=== PATIENT | female | born 1990 | race Caucasian/White ===

== ENCOUNTER 2016-09-24 17:32 | Emergency (ER) | payer SELFPAY ==
[2016-09-24 17:49] VITALS: BP 124/84
--- NOTE | 2016-09-24 18:15 | ER Document Report ---
ED Medical Screen (RME) - General Stated Complaint: POSSIBLE TOOTH ABSCESS Mode of Arrival: Ambulatory Information source: Patient Notes: Patient complains of dental pain for the past 3 days. I have greeted and performed a rapid initial assessment of this patient. A comprehensive ED assessment and evaluation of the patient, analysis of test results and completion of the medical decision making process will be conducted by additional ED providers. - Related Data Allergies/Adverse Reactions: No Known Allergies Allergy (Unverified 09/24/16 18:14) Physical Exam - Vital signs Vitals: Temp Pulse Resp BP Pulse Ox 98.6 F 112 H 16 124/84 98 09/24/16 17:48 09/24/16 17:48 09/24/16 17:48 09/24/16 17:48 09/24/16 17:48 - General General appearance: Appears well, Alert In distress: None Course - Vital Signs Vital signs: Temp Pulse Resp BP Pulse Ox 98.6 F 112 H 16 124/84 98 09/24/16 17:48 09/24/16 17:48 09/24/16 17:48 09/24/16 17:48 09/24/16 17:48
[2016-09-24] MEDS ORDERED: BUPIVACAINE HCL 0.25 % INJ/PF (2.5 MG/1 ML) 30 ML VIAL INJ ONE (20:04)
[2016-09-24] MEDS ORDERED: LIDOCAINE 1% INJ (10 MG/ML) 10 ML MDV INJ ONE (20:04)
[2016-09-24] MEDS ORDERED: PENICILLIN V POTASSIUM 500 MG TABLET PO ONE (20:04)
--- NOTE | 2016-09-24 20:05 | ER Document Report ---
ED Oral Problem - General Time seen by provider: 20:00 Mode of Arrival: Ambulatory TRAVEL OUTSIDE OF THE [place] IN LAST 30 DAYS: No - HPI Onset: Other - see HPI note Context: Fractured tooth Associated symptoms: Decreased appetite, Facial pain, Jaw pain <AILYN HALE - Last Filed: 09/24/16 20:14> <SHASHACEASAR MADRID KANDY - Last Filed: 09/24/16 21:30> - General Chief Complaint: Toothache Stated Complaint: POSSIBLE TOOTH ABSCESS Notes: Patient is a 26 year old female presenting to the emergency department with complaints of tooth and jaw pain. Patient states that her lower right tooth broke 2 months ago and has been hurting over the past 3 days. Patient states that she has not been able to eat much do to the pain. Patient states that she has not seen a dentist yet. Patient is from [place]. Patient states she has platelets in her mouth and she would need to see an oral surgeon. Patient states she has some pain in her jaw and it is tender. Patient has no known allergies and requests antibiotics for her toothache. 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 (AILYN HALE) - Related Data Allergies/Adverse Reactions: No Known Allergies Allergy (Unverified 09/24/16 18:14) Past Medical History - General Information source: Patient - Social History Smoking Status: Current Every Day Smoker Chew tobacco use (# tins/day): No Frequency of alcohol use: None Drug Abuse: None Family History: None Patient has suicidal ideation: No Patient has homicidal ideation: No - Medical History Medical History: Negative Surgical Hx: Negative <AILYN HALE - Last Filed: 09/24/16 20:14> Review of Systems - Review of Systems Constitutional: No symptoms reported EENT: See HPI, Dental problem Cardiovascular: No symptoms reported Respiratory: No symptoms reported Gastrointestinal: No symptoms reported Genitourinary: No symptoms reported Female Genitourinary: No symptoms reported Musculoskeletal: No symptoms reported Skin: No symptoms reported Hematologic/Lymphatic: No symptoms reported Neurological/Psychological: No symptoms reported -: Yes All other systems reviewed and negative <AILYN HALE - Last Filed: 09/24/16 20:14> Physical Exam - Vital signs Interpretation: Normal - General General appearance: Appears well, Alert In distress: Mild - HEENT Head: Normocephalic, Atraumatic Eyes: Normal Pupils: PERRL Mouth/Lips: Dental fracture - tooth 31 Mucous membranes: Moist Pharynx: Normal - Respiratory Respiratory status: No respiratory distress - Cardiovascular Rhythm: Regular - Abdominal Inspection: Normal - Back Back: Normal, Nontender - Extremities General upper extremity: Normal inspection, Normal ROM, Normal strength General lower extremity: Normal inspection, Normal ROM, Normal strength - Neurological Neuro grossly intact: Yes Cognition: Normal Orientation: AAOx4 [place] Coma Scale Eye Opening: Spontaneous [place] Coma Scale Verbal: Oriented [place] Coma Scale Motor: Obeys Commands [place] Coma Scale Total: 15 Speech: Normal - Psychological Associated symptoms: Normal affect, Normal mood - Skin Skin Temperature: Warm Skin Moisture: Dry <AILYN HALE - Last Filed: 09/24/16 20:14> Course <AILYN HALE - Last Filed: 09/24/16 20:14> <CEASAR ANDRES - Last Filed: 09/24/16 21:30> - Re-evaluation Re-evalutation: 09/24/16 21:30 Patient is a 26-year-old female who comes in complaining of dental pain. Patient has a history of opiate abuse and does not want any opiate pain medication. States that she would just like penicillin. Patient is supposed to be following up with a dentist and oral surgeon. Patient was given a dental block with good relief of her symptoms. Stable for discharge home. Return immediately if any worsening or concerning symptoms. (CEASAR ANDRES) - Vital Signs Vital signs: Temp Pulse Resp BP Pulse Ox 98.6 F 112 H 16 124/84 98 09/24/16 17:48 09/24/16 17:48 09/24/16 17:48 09/24/16 17:48 09/24/16 17:48 (AILYN HALE) (CEASAR ANDRES) Procedures - Additional Procedures dental block Additional Procedures: Other - Dental block inferior alveolar nerve on the right. Patient tolerated well. Bupivacaine and lidocaine used. 3 mL total <CEASAR ANDRES - Last Filed: 09/24/16 21:30> Discharge <AILYN HALE - Last Filed: 09/24/16 20:14> <CEASAR ANDRES - Last Filed: 09/24/16 21:30> - Discharge Clinical Impression: Cracked tooth, Toothache Condition: Stable Disposition: HOME, SELF-CARE Instructions: Toothache ([facility]), Dentist, Dental Infection or Abscess ([facility]) Prescriptions: Penicillin V Potassium [Penicillin Vk 500 mg Tablet] 500 mg PO TID #30 tablet Scribe Attestation: 09/24/16 21:30 I personally performed the services described in the documentation, reviewed and edited the documentation which was dictated to the scribe in my presence, and it accurately records my words and actions. (CESAAR ANDRES) Scribe Documentation - Scribe Written by Scrpasha:: Ailyn Hale 09/24/16 20:19 acting as scribe for :: Italo <AILYN HALE - Last Filed: 09/24/16 20:14>
== END 2016-09-24 20:38 | disposition home or self-care (01) ==
LOC: ER 17:32
PROC: 3E0T3BZ Introduction of Anesthetic Agent into Peripheral Nerves and Plexi, Percutaneous Approach (ICD-10-PCS; principal; 2016-09-24)
DX: K03.81 Cracked tooth (principal); K08.89 Other specified disorders of teeth and supporting structures; R68.84 Jaw pain; F17.200 Nicotine dependence, unspecified, uncomplicated
CPT/HCPCS: 99282

== ENCOUNTER 2017-11-22 15:38 | Emergency (ER) | payer SELFPAY ==
[2017-11-22 15:44] VITALS: BP 118/71
[2017-11-22] MEDS ORDERED: LIDOCAINE 2% VISCOUS SOLN 20 ML UDCUP PO ONE (15:52)
--- NOTE | 2017-11-22 15:57 | ER Document Report ---
HPI - HPI Pain Level: 5 Notes: Patient is a 27-year-old female with a history of previous general surgery who presents to the ED complaining of right lower jaw pain #29. Patient states that her tooth rotted out on its own and fell out and she believes she has had an infection in that area. Patient has not noticed any obvious abscess, but thinks it may have been some discharge. Her symptoms have been ongoing for the last 2 days. She is eating and drinking without any difficulties otherwise. She is urinating normally and having normal bowel movements. Patient has not schedule an appoint with the dentist. She does admit to smoking but denies IV drug use. Denies any drug allergies. No other concerns or complaints at this time. Denies any headache, documented fever, head injury, neck pain, changes in vision/speech/mentation/hearing, URI, sore throat, chest pain, palpitations, syncope, cough, shortness of breath, wheeze, dyspnea, abdominal pain, nausea/ vomiting/diarrhea, urinary retention, dysuria, hematuria, or rash. - ROS Systems Reviewed and Negative: Yes All other systems reviewed and negative Past Medical History - Social History Smoking Status: Current Every Day Smoker Family History: None Renal/ Medical History: Denies: Hx Peritoneal Dialysis Vertical Provider Document - CONSTITUTIONAL Agree With Documented VS: Yes Notes: PHYSICAL EXAMINATION: GENERAL: Well-appearing, well-nourished and in no acute distress. HEAD: Atraumatic, normocephalic. EYES: Pupils equal round and reactive to light, extraocular movements intact, sclera anicteric, conjunctiva are normal. ENT: EAC clear b/l. TM's intact b/l without erythema, fluid, or perforation. Nares patent and without discharge. oropharynx clear without exudates. No tonsilar hypertrophy or erythema. Moist mucous membranes. No sinus tenderness. Uvula midline. No palatine shift. No tongue protrusion. No respiratory compromise. Mouth: Poor dentition. Absent tooth with mild gingivitis. No obvious abscess or discharge noted. No facial swelling. + tenderness to area of #29. NECK: Normal range of motion, supple without lymphadenopathy. No rigidity/ meningismus. LUNGS: Breath sounds clear to auscultation bilaterally and equal. No wheezes rales or rhonchi. HEART: Regular rate and rhythm without murmurs, rubs, gallops. NEUROLOGICAL: Cranial nerves grossly intact. Normal speech, normal gait. Normal sensory, motor exams PSYCH: Normal mood, normal affect. SKIN: Warm, Dry, normal turgor, no rashes or lesions noted. - INFECTION CONTROL TRAVEL OUTSIDE OF THE [place] IN LAST 30 DAYS: No Course - Re-evaluation Re-evalutation: 11/22/17 15:54 Patient is an afebrile, well-hydrated, 27-year-old female who presents to the ED with dental pain to right lower jaw, suspect nerve root etiology versus infection. Vitals are acceptable. PE is otherwise unremarkable. No labs or imaging warranted at this time based on H&P. No incision and drainage is warranted at this time. Viscous lidocaine given today. I will send her home with a prescription for penicillin. Low suspicion for any meningitis, sepsis, peritonsillar/pharyngeal abscess, respiratory compromise, Gume's, temporal arteritis, or other emergent systemic condition at this time. Patient is aware this condition can change from initial presentation and she needs to monitor symptoms closely. Conservative measures otherwise for symptoms. Call to schedule an appointment with a dentist for further evaluation and management. Recheck with your PCM this week as well. Return to the ED with any worsening/ concerning symptoms otherwise as reviewed in discharge. Patient is in agreement. - Vital Signs Vital signs: Temp Pulse Resp BP Pulse Ox 97.5 F 81 16 118/71 97 11/22/17 15:43 11/22/17 15:43 11/22/17 15:43 11/22/17 15:43 11/22/17 15:43 Discharge - Discharge Clinical Impression: Pain, dental Condition: Stable Disposition: HOME, SELF-CARE Instructions: Dental Infection or Abscess ([facility]), Penicillin V K ([facility]) Additional Instructions: Dracut and floss twice daily Maintain fluid intake Take antibiotics as directed Mouthwash, salt water gargles, peroxide rinse as needed Tylenol/ibuprofen as needed Recheck with PCM this week Call today/tomorrow and schedule an appointment with your dentist for further evaluation Return to the ED with any worsening symptoms and/or development of fever, headache, facial swelling, swelling of lips/tongue/throat, trouble swallowing, drooling, hoarseness, neck pain/stiffness, chest pain, palpitations, syncope, shortness of breath, trouble breathing, abdominal pain, n/v/d, numbness/tingling , or other worsening symptoms that are concerning to you. Prescriptions: Penicillin V Potassium [Penicillin Vk 250 mg Tablet] 500 mg PO BID #40 tablet Forms: Smoking Cessation Education Referrals: [facility] [Provider Group] - Follow up in 1 week
== END 2017-11-22 16:07 | disposition home or self-care (01) ==
LOC: ER 15:38
DX: K08.9 Disorder of teeth and supporting structures, unspecified (principal); R68.84 Jaw pain; F17.200 Nicotine dependence, unspecified, uncomplicated
CPT/HCPCS: 99283; J3490